=== PATIENT | male | born 1965 | race Caucasian/White ===

== ENCOUNTER → 2020-08-12 09:21 | Outpatient (BNVA) | payer BC, SELFPAY | PROVIDERS: PCP Internal Medicine; Visit Provider Urology | DX: Z13.89 Encounter for screening for other disorder (principal) ==

== ENCOUNTER 2020-12-09 15:54 | Outpatient (REF) | payer BC, SELFPAY ==
[2020-12-09 18:16] LABS: Basophils Percent Auto 0.6 % (0-2); Eosinophils Absolute Auto 0.1 X10*3/uL (0.0-0.4); MANUAL DIFF FLAG SCAN; PLT CLUMP 1; Red Cell Distribution Width 11.6 % (11.0-16.0); SCAN SMEAR FLAG 1
[2020-12-09 18:18] LABS: Eosinophils Percent Auto 2.3 % (0-4); Hematocrit 44.1 % (42-52); Hemoglobin 15.6 g/dl (14.0-18.0); Imm Gran Abs Auto 0.01 X10*3/uL (0.00-0.03); Imm Gran Pct Auto 0.2 % (0.0-0.4); Lymphocytes Percent Auto 42.4 % (20-40); Mean Corpuscular HGB Conc 35.4 g/dl (31.0-36.0); Mean Corpuscular Hemoglobin 33.2 pg (27.0-33.0); Mean Corpuscular Volume 93.8 fL (80-98); Mean Platelet Volume 9.5 fL (9.4-12.4); Monocytes Absolute Auto 0.4 X10*3/uL (0.1-1.2); Monocytes Percent Auto 8.3 % (2-11); Neutrophils Absolute Auto 2.2 X10*3/uL (2.0-8.3); Neutrophils Percent Auto 46.2 % (45-73); Platelet Count 152 X10*3/uL (160-400); White Blood Count 4.8 X10*3/uL (4.8-10.8)
[2020-12-09 18:23] LABS: Prothrombin Time 11.5 SEC (10.8-13.0)
[2020-12-09 18:34] LABS: SLIDE REVIEW VERIFIED
[2020-12-09 18:41] LABS: Iron 147 mcg/dL (45-160); Percent Iron Saturation 52 % (15-50); Total Iron Binding Capacity 281 mcg/dL (228-428); Unsaturated Iron Binding 134 ug/dL
[2020-12-09 19:01] LABS: Ferritin 511 ng/mL (20-250)
[2020-12-09 19:14] LABS: Folate 17.9 ng/mL (> or = 4.0); Vitamin B12 408 pg/mL (200-900)
== END 2020-12-09 15:55 | disposition home or self-care (01) ==
LOC: HO.MANLDS 15:54
PROVIDERS: PCP Internal Medicine; Visit Provider Physician Assistant
DX: K06.8 Other specified disorders of gingiva and edentulous alveolar ridge (principal)
CPT/HCPCS: 36415; 82607; 82728; 82746; 83540; 85025; 85610; 85730

== ENCOUNTER 2020-12-28 15:46 | Outpatient (REF) | payer BC, SELFPAY ==
[2020-12-28 19:01] LABS: Iron 160 mcg/dL (45-160); Percent Iron Saturation 60 % (15-50); Total Iron Binding Capacity 267 mcg/dL (228-428); Unsaturated Iron Binding 107 ug/dL
[2020-12-28 19:23] LABS: Ferritin 411 ng/mL (20-250)
== END 2020-12-28 15:47 | disposition home or self-care (01) ==
LOC: HO.MANLDS 15:46
PROVIDERS: PCP Internal Medicine; Visit Provider Physician Assistant
DX: R79.0 Abnormal level of blood mineral (principal)
CPT/HCPCS: 36415; 82728; 83540

== ENCOUNTER 2021-01-25 08:54 | Outpatient (REF) | payer BC, SELFPAY ==
[2021-01-25 11:58] LABS: Iron 165 mcg/dL (45-160); Percent Iron Saturation 62 % (15-50); Total Iron Binding Capacity 267 mcg/dL (228-428); Unsaturated Iron Binding 102 ug/dL
[2021-01-25 12:22] LABS: Ferritin 418 ng/mL (20-250)
== END 2021-01-25 08:55 | disposition home or self-care (01) ==
LOC: HO.MANLDS 08:54
PROVIDERS: Visit Provider Physician Assistant
DX: R79.0 Abnormal level of blood mineral (principal)
CPT/HCPCS: 36415; 82728; 83540

== ENCOUNTER → 2021-03-30 15:00 | Outpatient (BNVA) | payer BC, SELFPAY | PROVIDERS: PCP Internal Medicine; Visit Provider Urology ==

== ENCOUNTER → 2022-05-03 12:52 | Outpatient (BNVA) | payer BC, SELFPAY | PROVIDERS: PCP Internal Medicine; Visit Provider Urology | DX: N40.1 Benign prostatic hyperplasia with lower urinary tract symptoms (principal); R35.1 Nocturia; N52.9 Male erectile dysfunction, unspecified; N48.6 Induration penis plastica | CPT/HCPCS: 51798 ==

== ENCOUNTER → 2022-09-19 09:45 | Outpatient (BNVA) | payer OTHER, SELFPAY | PROVIDERS: PCP Internal Medicine; Visit Provider Internal Medicine | DX: S42.252A Displaced fracture of greater tuberosity of left humerus, initial encounter for closed fracture (principal); W01.198A Fall on same level from slipping, tripping and stumbling with subsequent striking against other object, initial encounter | CPT/HCPCS: 73030; 99203 ==

== ENCOUNTER → 2022-09-26 08:50 | Outpatient (BNVA) | payer OTHER, SELFPAY | PROVIDERS: PCP Internal Medicine; Visit Provider Internal Medicine | DX: S42.252A Displaced fracture of greater tuberosity of left humerus, initial encounter for closed fracture (principal); W01.198A Fall on same level from slipping, tripping and stumbling with subsequent striking against other object, initial encounter | CPT/HCPCS: 99213 ==

== ENCOUNTER → 2022-11-04 13:34 | Outpatient (BNVA) | payer BC, SELFPAY | PROVIDERS: PCP Internal Medicine; Visit Provider Urology | DX: N52.9 Male erectile dysfunction, unspecified (principal) | CPT/HCPCS: 51798 ==

== ENCOUNTER 2023-11-07 12:38 | Outpatient (AMB) | payer BC, SELFPAY ==
--- NOTE | 2023-11-07 13:03 | A.OFFVIS_ITS ---
Intake Intake Visit Reasons: 1Y Med Review(Tadalafil)confirmed Intake Note: Patient is Present for Follow Up Urology Medication: Finasteride, Tadalafil ,Tamsulosin Antibiotic Allergies: Penicillins Blood Thinners: None Allergies Penicillins Allergy (Mild, Verified 11/04/22 13:53) RASH, HIVES phenobarbital [Phenobarbital] Allergy (Mild, Verified 11/04/22 13:53) UNKNOWN penicillin V Allergy (Unknown, Verified 11/04/22 13:53) rash,hives Medication List - Last Reconciled 11/07/23 by Jamin Dallas MD diltiazem HCl 120 mg PO DAILY finasteride 5 mg PO DAILY 90 days flecainide 50 mg PO BID tadalafil 5 mg PO DAILY 90 days tamsulosin 0.4 mg PO DAILY 30 days vitamin E (dl, acetate) 450 mg PO DAILY 90 days vitamin E (dl, acetate) 450 mg PO DAILY 90 days HPI HPI Comments History of Present Illness Details Scott is a pleasant male. He is a patient of Dr. Fairchild. He is seen for the following urologic conditions - BPH - nocturia - peroneus disease Twelve month follow-up Doing well with finasteride Has stopped using Cialis daily and is only using on demand Adjust finasteride to Monday, Monday, Monday May use 10-20 mg Cialis on demand Lower urinary tract symptoms Good response to finasteride single therapy Current symptoms minimal nocturia, effective stream, effective emptying PSA 2018 0.26, 04/04 0.3 Continue to follow yearly with laboratories Erectile dysfunction Currently feeling some issues with Peyronie's Still functional for intercourse Continue with vitamin-E and Cialis 5 mg daily 12 month follow-up [facility] Medical History Anal fissure BPH (benign prostatic hyperplasia) BPH associated with nocturia Elevated blood pressure reading Erectile dysfunction Frequency of urination Peyronie's disease Testicular cyst Surgical History History of cervical spinal surgery History of hernia repair Family History Father No problems noted. Mother No problems noted. Review of Systems Const Denies chills and Denies fever(s) Card Reports no additional complaints and Denies syncope Resp Denies cough GI Denies abdominal pain and Denies heartburn Reports as per HPI and Denies change in libido Neuro Denies syncope Psych Denies change in libido Endo Denies change in libido Physical Exam Const General: cooperative, healthy appearing, comfortable and no acute distress Orientation/consciousness: patient oriented x3 HEENT Face and sinus: Yes normal facial exam Mouth: moist mucous membranes Neck Neck: Yes normal visual inspection, Yes full ROM and Yes trachea midline Chest Chest palpation & inspection: normal inspection of the chest Resp Effort & Inspection: normal respiratory effort, able to speak in complete sentences and no respiratory distress GI Inspection: Yes normal to inspection Back/Spine/Pelvis Cervical Spine: normal cervical lordosis Thoracic/Lumbar Spine: thoracic and lumbar spine normal to inspection Skin General skin exam: no rashes or lesions noted Neuro General: patient oriented x3, gait normal, tone normal and moves all extremities Extrem General: Yes normal to inspection and Yes capillary refill normal Assessment & Plan Assessment & Plan (1) Erectile dysfunction: Code(s): N52.9 - Male erectile dysfunction, unspecified (2) BPH associated with nocturia: Code(s): N40.1 - Benign prostatic hyperplasia with lower urinary tract symptoms; R35.1 - Nocturia Plan Twelve month follow-up Orders: Orders Prostate Specific Antigen 364 Days N40.1 - Benign prostatic hyperplasia with lower urinary tract symptoms, R35.1 - Nocturia Medications: Refilled finasteride 5 mg PO DAILY 90 tabs 3RF 90 days N48.6 - Induration penis plastica Patient Instructions: Imaging studies, laboratory and physical exam results were discussed and reviewed in detail. No major barriers to patient understanding were identified. An opportunity to ask questions regarding the treatment plan was provided. All questions were answered. The patient expressed understanding and agreement with the above treatment plan. The patient is aware they should contact our office by phone for worsening of their current condition or the appearance of new urologic symptoms. Compliance is encouraged with any medications and followup testing that is ordered. It is a privilege to participate in the urologic care of your patient. If you have any questions or concerns regarding treatment for the above conditions, or other urologic issues, please do not hesitate to contact me. The office telephone contact is [phone]. This note is constructed using voice recognition software. While every effort has been made to ensure accuracy form press operator errors may have been included. Yours sincerely, Dr Jamin Dallas MD, [facility] - Urology Providers of Expert, Compassionate Care for the Genitourinary System Coding Level of Care Code Est Pt Level 4 (56270) Diagnoses Erectile dysfunction N52.9 BPH associated with nocturia N40.1; R35.1
== END 2023-11-07 13:21 | disposition home or self-care (01) ==
PROVIDERS: PCP Internal Medicine; Visit Provider Urology
DX: N52.9 Male erectile dysfunction, unspecified (principal); N40.1 Benign prostatic hyperplasia with lower urinary tract symptoms; R35.1 Nocturia
CPT/HCPCS: 99213

== ENCOUNTER → 2023-11-07 12:38 | Outpatient (BNVA) | payer BC, SELFPAY | PROVIDERS: Visit Provider Urology ==

== ENCOUNTER 2024-11-05 13:12 | Outpatient (AMB) | payer BC, SELFPAY ==
--- NOTE | 2024-11-05 13:21 | A.OFFVIS_ITS ---
Intake Visit Reasons: 1Y/ PSA Intake Note: Patient is Present for Follow Up Urology Medication: Finasteride, Tadalafil ,Tamsulosin Antibiotic Allergies: Penicillins Blood Thinners: None Bracelet And Brooch Maker Required: No Allergies Penicillins Allergy (Mild, Verified 11/05/24 13:22) RASH, HIVES phenobarbital [Phenobarbital] Allergy (Mild, Verified 11/05/24 13:22) UNKNOWN penicillin V Allergy (Unknown, Verified 11/05/24 13:22) rash,hives HPI Comments Details: Scott is a pleasant male. He is a patient of Dr. Fairchild. He is seen for the following urologic conditions - BPH - nocturia - peroneus disease Yearly follow-up Doing well with finasteride Has stopped using Cialis daily and is only using on demand Adjust finasteride to Monday, Monday, Monday May use 10-20 mg Cialis on demand Lower urinary tract symptoms Good response to finasteride single therapy Current symptoms minimal nocturia, effective stream, effective emptying PSA 2018 0.26, 04/04 0.3, 11/05 0.3 Continue to follow yearly with laboratories Erectile dysfunction Currently feeling some issues with Peyronie's Still functional for intercourse Continue with vitamin-E and Cialis 5 mg daily 12 month follow-up [facility] Medical History Anal fissure BPH (benign prostatic hyperplasia) BPH associated with nocturia Elevated blood pressure reading Erectile dysfunction Frequency of urination Peyronie's disease Testicular cyst Surgical History History of cervical spinal surgery History of hernia repair Family History Father No problems noted. Mother No problems noted. Review of Systems Const Denies chills and Denies fever(s) Card Reports no additional complaints and Denies syncope Resp Denies cough GI Denies abdominal pain and Denies heartburn Reports as per HPI and Denies change in libido Neuro Denies syncope Psych Denies change in libido Endo Denies change in libido Physical Exam Const General: cooperative, healthy appearing, comfortable and no acute distress Orientation/consciousness: patient oriented x3 HEENT Face and sinus: Yes normal facial exam Mouth: moist mucous membranes Neck Neck: Yes normal visual inspection, Yes full ROM and Yes trachea midline Chest Chest palpation & inspection: normal inspection of the chest Resp Effort & Inspection: normal respiratory effort, able to speak in complete sentences and no respiratory distress GI Inspection: Yes normal to inspection Back/Spine/Pelvis Cervical Spine: normal cervical lordosis Thoracic/Lumbar Spine: thoracic and lumbar spine normal to inspection Skin General skin exam: no rashes or lesions noted Neuro General: patient oriented x3, gait normal, tone normal and moves all extremities Extrem General: Yes normal to inspection and Yes capillary refill normal Assessment & Plan Assessment & Plan (1) Erectile dysfunction: Code(s): N52.9 - Male erectile dysfunction, unspecified Category: Medical (2) BPH associated with nocturia: Code(s): N40.1 - Benign prostatic hyperplasia with lower urinary tract symptoms; R35.1 - Nocturia Category: Medical Plan Twelve month follow-up Medications: Discontinued tamsulosin Discontinued Reason: Patient Completed Course 0.4 mg PO DAILY 30 days 30 caps 0RF N40.1 - Benign prostatic hyperplasia with lower urinary tract symptoms, R35.1 - Nocturia Patient Instructions: This note is constructed using voice recognition software. While every effort has been made to ensure accuracy level vial inspector and tester errors may have been included. Imaging studies, laboratory and physical exam results were discussed and reviewed in detail. No major barriers to patient understanding were identified. An opportunity to ask questions regarding the treatment plan was provided. All questions were answered. The patient expressed understanding and agreement with the above treatment plan. The patient is aware they should contact our office by phone for worsening of their current condition or the appearance of new urologic symptoms. Compliance is encouraged with any medications and followup testing that is ordered. It is a privilege to participate in the urologic care of your patient. If you have any questions or concerns regarding treatment for the above conditions, or other urologic issues, please do not hesitate to contact me. The office telephone contact is [phone]. Sincerely, Dr Jamin Dallas MD, [facility] - Urology Compassionate Specialist Care for the Genitourinary System Coding Level of Care Code Est Pt Level 4 (71278) Diagnoses Erectile dysfunction N52.9 BPH associated with nocturia N40.1; R35.1
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
--- OUTSIDE RECORDS SUMMARY | 2024-11-05 16:03 | XMS_ITS | Continuity of Care Document ---
Author Organization [facility], [facility] Address [address] [facility] [place] [address] [place] [address] Care Team Providers Care Trailer Rental Clerk Name Role Phone SUSI TO Technical Account Executive Assessment No assessment recorded. Plan of Treatment Reminders Order Date Submit Date Provider Last Modified By Organization Details Last Modified Time Details Appointments None recorded. Lab None recorded. Referral dermatologi st referral 2024 025 [facility] Lloyd Floyd MD, [address], [place], [address], 5 08:44:24 Procedures None recorded. Surgeries None recorded. Imaging CT, chest, w/o contrast - Not Required Procedure codes: [id number] Reference #: [id number] Resolution: Completed on 10/25/2024 at 12:50 pm. Call ref #[id number] 4. 2024 025 [facility], [address] [place], [address], 5 08:44:37 Medication Orders None recorded. Patient TargetsNo targets recorded. Patient InstructionsNo instructions recorded. Reason for Referral [employer] Referral for L esion of skin of face new skin lesion, left side of the face, fam hx of basal cell carcinoma Referring Physician: Seema Beck, Internal Medicine, Encounter Date: 10/25/2024 Problems Name Problem SNOMED Code Status Onset Date Resolution Date Notes Provider Name and Address Organization Details Recorded Time Atrial fibrilla tion 03596563 Active 2019 Not Available [facility] 1 13:00:03 Solitary nodule of lung 483962551 Active 2019 Not Available [facility] 1 13:00:03 Fracture d nasal bones 892307284 Active 2021 Lloyd Fairchild DO [address] [place], [address], [facility] 2 15:51:18 Pain of left hip joint 95946263455 9100 Active 2022 AKUA VALLE [address] [place], [address], [facility] 3 09:52:48 Acetabul ar labrum tear 022661598 Active 2022 AKUA VALLE [address] [place] [address], [address], [facility] 3 10:35:19 History of divertic ulitis 57204006375 9100 Completed 11/20/2017November LOGAN Bowen [address] [place], [address], [facility] 8 12:12:15 History of divertic ulitis 98924509410 9100 Active 2017 Not Available [facility] 1 13:00:03 Benign prostati c hyperpla theo 088011882 Active 2017 Not Available [facility] 1 13:00:03 History of tobacco use 34847209103 03 Active 2017 Not Available [facility] 1 13:00:03 Nonsusta ined paroxysm al supraven tricular tachycar alessia 99877865672 00 Active 2017 Not Available [facility] 1 13:00:03 Lesion of skin of face 99023752575 6 Active 2024 AKUA VALLE [address] [place], [address], [facility] 5 10:18:45 Problem Notes None recorded. Procedures Surgical History Date Name Laterality Status Provider Name and Address Organization Details Recorded Time 08/14/19 04 Unlisted procedure spine completed November [facility] [address] [place], [address], [facility] 11/20/2017 12:15:21 08/14/18 84 Hernia Repair completed [address], [address], [facility] 11/20/2017 12:15:33 extraction of wisdom tooth completed Raiza Torres NP, S [address] [place], [address], [facility] 11/14/2018 15:09:09 Unlisted px vascular surgery completed Alexa [address], [address], [facility] 11/20/2017 12:15:52 Imaging Results None recorded. Procedure Notes None recorded. Medical Equipment None Reported. Allergies Allergen ID Allergen Name Allergen Category Reaction Reaction Severity Criticality Documentation Date Start Date Code Code System Note Provider Name and Address Organization Details Recorded Time 842 Product containin g penicilli n (product) medicatio n Not available Not available Not available 11/20/2017 48811 8001 SNOMED [facility] 8 11:26:40 843 phenobarb ital medicatio n Not available Not available Not available 11/20/2017 8134 [facility] 8 11:27:29 Medications Name Sig Start Date [...] Not Available Not Available Not Available Afluria 2414-5398 (PF) 45 mcg(15 mcg x 3)/0.5 mL intramuscul ar syringe 08/10 completed Not Available Not Available Not Available Afluria Quad 7558-8935 (PF) 60 mcg (15 mcg x 4)/0.5 [...] Updated DateTime 5 203.2 cm 30.5 kg/m2 449305. 68 g 76 /min 97 % 97 % 134 mm[Hg] 84 mm[Hg] [facility] 5 10:13:36 Social History Question Answer Notes LastModified by Organizat ion Details LastModified Time Tobacco Smoking Status Former Smoker Not Available [facility] 06/16/2020 03:36:23 What Was The Date Of Your Most Recent Tobacco Screening? 10/25/2024 [email or web address] Information not available 10/25/2024 How Many Years Have You Smoked Tobacco? 5 [id number] Information not available 06/16/2020 Do You Or Have You Ever Used Any Other Forms Of Tobacco Or Nicotine? No [email or web address] Information not available 11/11/2022 Sex: Unknown Functional [...] virus, quadrivalent, preservative 8 completed Tahira Gencarelle [facility] 09/12/2022 08:14:42 Tdap 1 completed Halley Kaufman [facility] 11/12/2019 08:53:35 Influenza, split virus, quadrivalent, preservative 9 completed Tahira Gencarelle [facility] 09/12/2022 08:14:42 Influenza, split virus, quadrivalent, PF 9 completed Tahira Gencarelle [facility] 09/12/2022 08:14:42 Influenza, split virus, quadrivalent, preservative 0 completed Tahira Gencarelle [facility] 09/12/2022 08:14:42 COVID-19, mRNA, LNP-S, PF, 100 mcg/0.5mL dose or 50 mcg/0.25mL dose 1 completed Tahira Gencarelle [facility] 09/12/2022 08:14:42 Past Encounters Encounter ID Performer Location Encounter Start Date Encounter Closed Date Diagnosis/Indication Diagnosis SNOMED-CT Code Diagnosis ICD10 Code Diagnosis Note [id number] AKUA VALLE [facility] [address] [facility] [place] [address] 10/25/2024 10:08:45 10/25/2024 11:46:22 Lesion of skin of face 6867528377 06 L98.9 needs new referral to derm Solitary n odule of lung 303695302 R91.1 will set up with f/u CT chest Health Concerns Section Related Observation LastModified by Organization Detai ls LastModified Time None Recorded Concern Status LastModified by Organization Details LastModified Time None Recorded Payers Encounter Date Sequence Insurance Name Policy Number Policy Pimentel Covered Member ID Pimentel Member ID Guarantor Name 10/25/2024 1 [facility] [place] [id number] Scott Buchanan [id number] Scott Buchanan Notes Date Note Type Note Provider Name a nd Address Organization Details Recorded Time 10/25/2024 text/html f/u CT recheck lesion face, R side, hx of basal cell carcinoma (sisters)the patient reports agreed to referral to [facility] the patient needs his routine CT chest for his pulm nodulethe patient will f/u after CT results return the pt has seen blocklayer/onco logist and has his f/u appt with cardiothe pt is still getting cortisone inj in his hips bilaterally the patient still f/u with ortho routinely as well otherwise doing well, no questions AKUA VALLE [address] [place] [address], [place], [address], [facility] 10/25/2024 10:30:08
--- OUTSIDE RECORDS SUMMARY | 2024-11-05 16:03 | XMS_ITS | Data Portability ---
Author Organization [place] - [facility], [facility] Address [address] [place] [address] Care Team Providers Care Service Parts Driver Name Role Phone JENNA COLON Primary Care Provider Assessment Encounter Date Assessment Date Assessment LastModified by Organization Details LastModified Time 02/12/2024 02/12/2024 I am seeing the patient today under the supervision of Dr Bender who was available but who did not see the patient. andrew Not available 02/08/2024 06:41:57 05/08/2024 05/08/2024 I am seeing the patient today under the supervision of Dr Bender who was available but who did not see the patient. andrew Not available 05/08/2024 12:13:04 07/29/2024 07/29/2024 I am seeing the patient today under the supervision of Dr Bender who was available but who did not see the patient. andrew Not available 07/29/2024 07:24:25 10/30/2024 10/30/2024 I am seeing the patient today under the supervision of Dr Bender who was available but who did not see the patient. [email or web address] Not available 10/30/2024 07:30:53 Plan of Treatment Reminders Order Date Submit Date Provider Last Modified By Organization Details Last Modified Time Details Appointments RECHECK 15 2024 07:30A Anamika Gorman PA-C Not available Not available Not available Lab None recorded . Referral None recorded . Procedures None recorded . Surgeries None recorded . Imaging None recorded . Medication Orders None recorded . Patient TargetsNo targets recorded. Patient InstructionsNo instructions recorded. Reason for Referral None Reported. Results Created Date Observation Date Name Description Value Unit Range Abnormal Flag Note LastModifiedBy Organization Detail LastModifiedTime 04/13/20 24 12/09/2022 imagi ng/di agnos tic resul t No observ ation record ed. [email or web address] Not Available 03/16 08:29:27 04/13/20 24 10/01/2022 imagi ng/di agnos tic resul t No observ ation record ed. [email or web address] Not Available 03/16 08:29:53 Result Notes None recorded. Problems Name Problem SNOMED Code Status Onset Date Resolution Date Notes Provider Name and Address Organization Details Recorded Time No complaint s 843365665 Active Status: 'I'; Not Available [facility] 4 09:17:35 Osteoarth ritis of bilateral hip joints 585201767646 105 Active 2023 Nile Gorman PA-C [address], [place], [address] , [facility] 4 06:41:58 Tendiniti s of left posterior tibial tendon 365508189421 100 Active 2015 Problem Code: M76.822; Problem Code Type: ICD-10; Status: 'A'; Not Available [facility] 4 11:42:50 Tendiniti s of right posterior tibial tendon 569483898695 102 Active 2015 Problem Code: M76.821; Problem Code Type: ICD-10; Status: 'A'; Not Available [facility] 4 11:42:50 Problem Notes None recorded. Procedures Surgical History Date Name Laterality Status Provider Name and Address Organization Details Recorded Time 10/30/2024 Aleisha US Maulik completed Nile Gorman PA-C [address], [place], [address], [facility] 10/30/2024 07:30:49 07/29/2024 Aleisha Inj Maulik completed Nile Gorman PA-C [address], [place], [address], [facility] 07/29/2024 07:24:25 05/08/2024 JZHip Inj Maulik completed Nile Gorman PA-C [address], [place], [address], [facility] 05/08/2024 12:13:04 02/12/2024 JZHip Inj Maulik completed Nile Gorman PA-C [address], [place], [address], [facility] 02/08/2024 06:41:57 Imaging Results Imaging Date Name Status LastModified by Organiz ation Details LastModified Time 12/09/2022 imaging/diag nostic result completed Information not available 04/13/2024 08:29:27 10/01/2022 imaging/diag nostic result completed Information not available 04/13/2024 08:29:53 Procedure Notes None recorded. Medical Equipment None Reported. Allergies Allergen ID Allergen Name Allergen Category Reaction Reaction Severity Criticality Documentation Date Start Date Code Code System Note Provider Name and Address Organization Details Recorded Time 87266 Product containin g penicilli n (product) medicatio n Not available Not available Not available 10/16/20232008 36641 8001 SNOMED Aller gyRea ction : 'Skin React ion'; Not Available [facility] 15:13:23 Medications Name Sig Start Date Stop Date Status Note LastModified by Organization Details LastModified Time doxycycline monohydrate 100 mg capsule active Not Available Not Available Not Available flecainide 50 mg tablet active Not Available Not Available Not Available diltiazem CD 120 mg capsule,ext ended release 24 hr active Not Available Not Available Not Available finasteride 5 mg tablet TAKE 1 TABLET BY MOUTH DAILY active Not Available Not Available No t Available oxycodone HCl-oxycodo ne-ASA as directed 1 TABLET Q 4 HOURS PRN PAIN DO NOT DRIVE WHILE TAKING THIS MEDICATIO N 05/08 completed Statu s: 'Curr ent'; Not Available Not Available Not Available Eliquis 5 mg tablet active Not Available Not Available No t Available Vitals Date Recorded Body height Body mass index (BMI) Body weight Provider Name and Address Organization Details Last Updated DateTime 02/12/2024 203.2 cm 29.7 kg/m2 529226.94 g Varinder [facility] 02/12/2024 10:45:07 Date Recorded Body height Body mass index (BMI) Body weight Provider Name and Address Organization Details Last Updated DateTime 05/08/2024 203.2 cm 29.7 kg/m2 726478.94 g Varinder [facility] 05/08/2024 13:19:21 Date Recorded Body height Body mass index (BMI) Body weight Provider Name and Address Organization Details Last Updated DateTime 07/29/2024 203.2 cm 29.7 kg/m2 802389.94 g [facility] 07/29/2024 07:36:01 Date Recorded Body height Body mass index (BMI) Body weight Provider Name and Address Organization Details Last Updated DateTime 10/30/2024 203.2 cm 29.7 kg/m2 066723.94 g [facility] 10/30/2024 07:20:31 Social History None recorded. Functional Status None recorded. Mental Status None recorded. Family History Nothing Reported. Medical History Condition Response Allergies/Hayfever N Coronary Artery Disease N Anxiety/Depression N Breathing or lung disorders N Emphysema N Nerve Disorders N Thyroid Problems N COPD N Pacemaker N Anemia N Kidney/Bladder Problems N Vascular Disease N Heart Trouble N Heart Attack (HI) N Gastrointestinal Disease N Cholesterol N Diabetes N Autoimmune disease N Inflammatory Joint disease N Bleeding Disorder N Orthotics N Arthritis Y Seizures/Epilepsy N Blood Clot N AIDS/HIV N Congestive Heart Failure (CHF) N Acid Reflux (GERD) N Cancer N Stroke N Asthma N Circulation Problems N Peripheral Vascular Disease N Sleep Apnea N Hepatitis N Heart Disease N Rheumatoid Arthritis N Arrhythmia N Pulmonary Embolism N Headaches N Fibromyalgia N Hypertension N Osteoporosis N Past Encounters Encounter ID Performer Location Encounter Start Date Encounter Closed Date Diagnosis/Indication Diagnosis SNOMED-CT Code Diagnosis ICD10 Code Diagnosis Note [id number] REMA [place] [address] [place] [address] 02/12/2024 10:37:25 03/11/2024 12:52:08 Osteoarthritis of bilateral hip joints 3333564534 61937 M16.0 [id number] Nile Zwirko, PA-C [place] [address] [place] [address] 05/08/2024 13:09:21 05/27/2024 13:12:36 Osteoarthritis of bilateral hip joints 8807754035 78700 M16.0 [id number] Nile Gorman PA-C [place] [address] [place] [address] 07/29/2024 07:29:14 08/20/2024 11:41:20 Osteoarthritis of bilateral hip joints 5934572046 61064 M16.0 [id number] Nile Gorman PA-C [facility] [place] [address] [place] [address] 10/30/2024 06:59:53 10/30/2024 07:31:02 Osteoarthritis of bilateral hip joints 6253793904 02724 M16.0 Health Concerns Section Related Observation LastModified by Organization Detai ls LastModified Time None Recorded Concern Status LastModified by Organization Details LastModified Time None Recorded Advance Directives Directive None Recorded Payers Encounter Date Sequence Insurance Name Policy Number Policy Pimentel Covered Member ID Pimentel Member ID Guarantor Name 05/08/2024 1 [employer] [facility] [place] [id number] [place] [id number] [place] 07/29/2024 1 [place] [facility] [id number] [place] [id number] [place] 10/30/2024 1 [place] [facility] [id number] [place] [id number] [place]
== END 2024-11-05 13:45 | disposition home or self-care (01) ==
LOC: HO.HUSH 13:13
PROVIDERS: PCP Internal Medicine; Visit Provider Urology
DX: N52.9 Male erectile dysfunction, unspecified (principal); N40.1 Benign prostatic hyperplasia with lower urinary tract symptoms; R35.1 Nocturia
CPT/HCPCS: 99214

== ENCOUNTER → 2024-11-05 13:12 | Outpatient (BNVA) | payer BC, SELFPAY | PROVIDERS: PCP Internal Medicine; Visit Provider Urology ==